=== PATIENT | female | born 1940 | race Caucasian/White ===

== ENCOUNTER 2016-09-01 00:38 | Observation (INO) | payer OTHER ==
[~2016-09-01] VITALS: Ht 152.4 cm; Wt 49.3 kg
[2016-09-01] VITALS (13 sets, daily range): BP systolic 129–187; BP diastolic 64–80
--- NOTE | ~2016-09-01 | EKG ---
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
--- NOTE | ~2016-09-01 | 2DMMODE ---
[facility] [place] [address] 2 D/M-MODE ECHOCARDIOGRAM Name: PAULO BURT Reanna Room #: 210-P [facility] IN [facility].#: [id number] Admission: 09/01/16 Attend Phys: Aremn Hill Discharge: Date of : 44 Date of Service: 09/01/16 1610 Report #: [id number] THIS REPORT FOR: //name// APPROVED REPORT EXAM: Comprehensive 2D, Doppler, and color-flow Echocardiogram Patient Location: Bedside Blood Pressure: 139/76 mmHg HR: 74 bpm Other Information Study Quality: Good Indications Hypertension/HDD Chest Pain HLP. 2D Dimensions RVDd: 33.13 mm LVEF(%): 50.81 (>50%) IVSd: 10.22 (7-11mm) LVOT Diam: 22.27 (18-24mm) LVDd: 41.15 mm PWd: 10.68 (7-11mm) Ascending Aorta: 26.65 mm LVDs: 30.63 (25-40mm) IVC: 18.00 mm Aortic Root: 28.00 mm Agarwal's LVEF: 50.81 % Volumes Left Atrial Volume (Systole) Single Plane 4CH: 25.07 mL Single Plane 2CH: 28.65 mL LA ESV Index: 23.00 mL/m2 Aortic Valve AoV Peak Ramon.: 1.73 m/s AO Peak Gr.: 11.99 mmHg LV Max P.20 mmHg LV Max: 1.24 m/s Mitral Valve MV PHT: 86.26 ms MV E Max Ramon.: 0.70 m/s E/A Ratio: 0.6 MV A Ramon.: 1.13 m/s MV Decel. Time: 297.46 ms [facility] [place] [address] 2 D/M-MODE ECHOCARDIOGRAM Name: PAULO BURT Reanna Room #: [address] [place] [address] [place] ..#: [id number] Admission: 09/01/16 Attend Phys: rAmen Hill Discharge: Date of : 44 Date of Service: 09/01/16 1610 Report #: [id number] Pulmonary Valve PV Peak Ramon.: 0.85 m/s PV Peak Gr.: 7.67 mmHg SC End Vmax: 0.85 m/s Tricuspid Valve TR Peak Ramon.: 3.13 m/s RAP Estimate: 5.00 mmHg TR Peak Gr.: 39.20 mmHg Left Ventricle The left ventricle is normal size. There is normal LV segmental wall motion. Mild concentric left ventricular hypertrophy. Left ventricular systolic function is normal. The left ventricular ejection fraction is within the normal range. LVEF is 50-55%. Grade I - abnormal relaxation pattern. Right Ventricle The right ventricle is normal size. The right ventricular systolic function is normal. Atria The left atrium size is normal. The right atrium size is normal. Aortic Valve The aortic valve is minimally sclerotic without stenosis or insufficiency No aortic regurgitation is present. There is no aortic valvular stenosis. Mitral Valve The mitral valve is normal in structure. Mild mitral regurgitation. Tricuspid Valve The tricuspid valve is normal in structure. There is mild tricuspid regurgitation. The right atrial pressure is estimated at 5 mmHg. There is mild-moderate pulmonary hypertension. The estimated PAP is 44 mmHg. Pulmonic Valve The pulmonary valve is normal in structure. Trace pulmonic regurgitation. Great Vessels The aortic root is normal in size. IVC is normal in size and collapses >50% with inspiration. [facility] [address] [place] [address] 2 D/M-MODE ECHOCARDIOGRAM Name: PAULO BURT Room #: 210-P [facility] IN .R.#: [id number] Admission: 09/01/16 Attend Phys: Armen Hill Discharge: Date of : 44 Date of Service: 09/01/16 1610 Report #: [id number] Pericardium There is no pericardial effusion. <Conclusion> Left ventricular systolic function is normal. Grade I diastolic dysfunction The left ventricular ejection fraction is within the normal range. There is normal LV segmental wall motion. LVEF 50-55%. The aortic valve is minimally sclerotic without stenosis or insufficiency The mitral valve is normal in structure. Mild mitral regurgitation. There is mild tricuspid regurgitation. The right atrial pressure is estimated at 5 mmHg. There is mild-moderate pulmonary hypertension. The estimated PAP is 45 mmHg. There is no pericardial effusion. <ELECTRONICALLY SIGNED> By: James Painter MD, FACC 09/01/161609 09 09 James Painter MD, FACC /INF
--- NOTE | ~2016-09-01 | EKG ---
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 : 1940 Requested By: Armen Hill Order Number: [id number] MD: James Painter Measurements Intervals [place] Rate: 72 P: 15 W[place]: 162 QRS: -23 QRSD: 134 T: 134 QT: 428 QTc: 469 Interpretive Statements Sinus rhythm Left bundle branch block Baseline wander in lead(s) V6 No previous ECG available for comparison Electronically Signed On 09-02-2016 7:39:34 CDT by James Painter [email or web address] <ELECTRONICALLY SIGNED> By: James Painter MD, [facility] 09/02/16 0739 0149 0149 James Painter MD, [facility] /EPI
--- NOTE | ~2016-09-01 | CATHLAB ---
[facility] [place] [address] INVASIVE PROCEDURE REPORT Name: PAULO BURT Reanna Room #: 210-P [facility]#: [id number] Admission: 09/01/16 Attend Phys: Armen Hill Discharge: 09/02/16 Date of : 44 Date of Service: 09/01/16 1027 Report #: [id number] THIS REPORT FOR: //name// CC: Armen CARDOZO DATE OF SERVICE: 09/01/2016 CARDIAC CATHETERIZATION REPORT INDICATIONS: Unstable angina. Full risks, benefits and alternatives of cardiac catheterization were explained to the patient. All questions were answered. Informed consent was obtained. The right groin area was prepped and draped in a sterile manner. Lidocaine was given subcutaneously. A 4-Bulgarian sheath was inserted into the right femoral artery via modified Seldinger technique. CORONARY ANATOMY: The left main artery is a large caliber vessel, with no flow-limiting lesions. The LAD is a moderate-sized caliber vessel, travelling down the anterior wall and terminating just before the apex. There is mild disease in the proximal segment of the LAD, 20%. There is one moderate-sized first diagonal artery, with a mild stenosis at the ostium, 20%. The left circumflex artery is a moderate-sized caliber vessel, supplying two obtuse marginal arteries. There is mild plaquing in the ostium of the left circumflex artery, 30%. The RCA is a dominant vessel, ectatic throughout its course. There is mild disease in the mid segment, 30%. The PDA is a moderate-sized caliber vessel, wrapping around the apex. There are no flow-limiting lesions in the PDA. There are several posterolateral branches, with no flow-limiting lesions. A left ventriculogram was performed, revealing LV systolic function at borderline low-normal, ejection fraction of 50%. The LVEDP is approximately 18 mmHg. There is no gradient degree across the outflow tract. IMPRESSION: 1. Mild nonobstructive coronary artery disease. 2. Right dominant system. [facility] [address] [place] [address] INVASIVE PROCEDURE REPORT Name: PAULO BURT Room #: 210-P [facility] IN [facility].#: [id number] Admission: 09/01/16 Attend Phys: Armen Hill Discharge: 09/02/16 Date of : 44 Date of Service: 09/01/16 1027 Report #: [id number] 3. Borderline low-normal left ventricular systolic function. 4. Recommend medical therapy. <ELECTRONICALLY SIGNED> By: Ayan Tolbert MD 09/03/16 0824 1027 1247 Ayan Tolbert MD /nt
[2016-09-01] MEDS ORDERED: LOVASTATIN 20 M20 MG PO (02:32)
[2016-09-01] MEDS ORDERED: LEVOTHYROXINE 0.1 MG PO (02:32)
[2016-09-01] MEDS ORDERED: ASPIR 8181 MG PO (02:33)
[2016-09-01 04:01] LABS: ALBUMIN 3.4 g/dL (3.4-5.0); CALCIUM 9.2 mg/dL (8.5-10.1); CREATININE 0.8 mg/dL (0.6-1.3); POTASSIUM 3.4 mmol/L (3.5-5.1); TOTAL BILIRUBIN 0.3 mg/dL (<0.1-1.0); TOTAL PROTEIN 7.5 g/dL (6.4-8.2); TROPONIN-I 0.11 ng/mL (<0.04-0.07)
[2016-09-01 04:28] LABS: CHOLESTEROL 167 mg/dL (<200); HDL CHOLESTEROL 47 mg/dL (>40); LDL CHOLESTEROL 104 mg/dL (<100); TC:HDL 3.6 Ratio (Not establshd); TRIGLYCERIDE 80 mg/dL (<150); TROPONIN-I 0.11 ng/mL (<0.04-0.07); VLDL 16 mg/dL (<40)
[2016-09-01 04:30] LABS: SERUM ASSESSMENT Clear
[2016-09-02 03:24] LABS: HEMATOCRIT 40.7 % (37.0-47.0); HEMOGLOBIN 13.6 gm/dL (12.0-15.0); MCHC 33.3 g/dL (28.0-37.0); MCV 86.9 fL (80.0-100.0); RBC 4.68 mil/uL (4.20-5.00); RDW 14.9 % (10.5-14.5); WBC 9.1 thou/uL (4.0-11.0)
[2016-09-02 03:34] VITALS: BP 130/67
[2016-09-02 03:34] LABS: CALCIUM 8.8 mg/dL (8.5-10.1); CREATININE 0.8 mg/dL (0.6-1.3)
[2016-09-02 03:41] LABS: POTASSIUM 4.4 mmol/L (3.5-5.1)
[2016-09-02 13:21] VITALS: BP 130/67
[2016-09-02 13:22] VITALS: BP 130/67
[2016-09-02] MEDS ORDERED: CARVEDILOL6.25 MG PO (13:23)
== END 2016-09-02 13:50 | disposition home or self-care (01) ==
LOC: 2N 00:38
PROVIDERS: Internal Medicine Endocrinology, Diabetes & Metabolism; Nurse Practitioner
DX: I25.110 Atherosclerotic heart disease of native coronary artery with unstable angina pectoris (principal); M25.512 Pain in left shoulder; E03.9 Hypothyroidism, unspecified; I10 Essential (primary) hypertension; E78.5 Hyperlipidemia, unspecified; E87.6 Hypokalemia

== ENCOUNTER 2017-03-10 13:23 | Inpatient (IN) | payer OTHER ==
[~2017-03-10] VITALS: Ht 149.9 cm; Wt 53.8 kg
--- NOTE | ~2017-03-10 | HC ---
[facility] [place] [address] CONSULTATION Name: PAULO BURT Room #: 406-P [facility] IN M.R.#: [id number] Admission: 03/10/17 Attend Phys: Armen Hill MD Discharge: 03/12/17 Date of : 44 Report #: [id number] THIS REPORT FOR: //name// CC: [facility] Ayan FRIED REASON FOR CONSULT: Mediastinal adenopathy seen on outside CAT scan. PET CT of the PE protocol from [place] described no pulmonary embolus; however, there was mediastinal subcarinal left hilar adenopathy. The largest mass of adenopathy is in the aortopulmonic window region measuring 4.5 cm x 6.8 cm. The left posterior hilar adenopathy measures 3 cm in greatest dimension, subcarinal adenopathy measures approximately 3.3 cm. So they described no evidence for pulmonary emboli, but did see mediastinal subcarinal left hilar adenopathy most suggestive of neoplastic process such as metastatic adenopathy perhaps lymphoma. Note the patient also had a CT abdomen and pelvis without specific findings. She also had an MRI of the head to evaluate the dizziness without specific findings. The patient had said that she had woken up on Wednesday, note that this is Wednesday, with some slight dizziness, she usually takes ____ slightly better; then it persisted on Wednesday and , it was present when she came here, that was why she got into the Emergency Room. Before that, she denied any headache, vision changes, mouth sores, thinking changes, speaking troubles, discoordination except for some mild disequilibrium from the wooziness. This is a little bit different. She has had vertigo before. This was not quite the same. This is more felt like she might pass out. No arm or leg swelling. No dysesthesias. She has not had any new breathing troubles. No new cough. She has a very mild smoker's cough, does not cough up any blood. No swallowing difficulties. Appetite has been good. No weight change, no diarrhea, no constipation, no blood in her urine or stool recently, no dysuria, no ankle swelling. PAST MEDICAL HISTORY: Notable for adult hypothyroidism, also note that recently she had had some chest discomfort, had an elevated troponin, but had no significant disease on cath, had a normal echo, 50-55%. It sounds like they thought it is secondary to hypertension. The patient seems to think she had a heart attack, but least the note from slat grader here seemed to not come to the same conclusion. FAMILY HISTORY: Mother had no specific illnesses other than old age. Father, sounds like she does not know much about him. Sounds like she had 3 siblings growing up, I think one of them may have had some blindness issues. She has 4 children, I think a daughter has some back issues. 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 Still smokes about a pack per day. She lives by herself except for her dachshund named Diann who has seizures and takes phenobarbital. She does not drink any alcohol. No street drugs. MEDICATIONS: At this time in the hospital include atorvastatin calcium 20 mg at dinner, aspirin 81 mg daily, pantoprazole 40 mg daily, levothyroxine 100 mcg daily, docusate 100 mg b.i.d., meclizine t.i.d. p.r.n., Tylenol p.r.n., MiraLax p.r.n., nitroglycerin tablets sublingual p.r.n., carvedilol 6.25 mg b.i.d., IV fluids, Zofran p.r.n. PHYSICAL EXAMINATION: GENERAL: The patient appears her stated age. VITAL SIGNS: Height is 4 feet 11 inches, 149.9 cm, weight is 118.7 pounds or 53.8 kilograms. Blood pressure is 156/92, O2 sat 91%, respirations 20, pulse 80, temperature 98.4. MOOD: The patient is alert, pleasant and appears to be a reliable historian. NEUROLOGIC: Face is symmetrical. She is moving all extremities. Speech pattern appears to be normal. No facial drooping. LUNGS: Have symmetric unlabored pulmonary expansion without rhonchi, rales or wheezes. LYMPHATICS: No enlarged lymph nodes in the supraclavicular, cervical, axillary, inguinal, or epitrochlear region. ABDOMEN: Soft without mass. EXTREMITIES: Without clubbing, cyanosis or edema. LABORATORY DATA: Here shows normal electrolytes, BUN of 7, creatinine 0.7. Liver functions normal, ALT slightly low at 14, albumin slightly low at 3. INR was normal on admit. Hemoglobin 12.4, white count 8.2, MCV 86.7, platelets 301. UA unremarkable. Radiologic studies mentioned and done here include the MRI of the head, which did not reveal any specific changes, other than moderate chronic small vessel ischemic type change without evidence of acute or recent infarct. The CAT scan of the abdomen and pelvis as mentioned done here showed small infrarenal abdominal aortic aneurysm with moderate amount of intraluminal thrombus. No evidence of dissection. IVC was normal. No evidence of intraabdominal adenopathy or hepatic enlargement or splenic enlargement. DISCUSSION: Discussed with the patient that she knows that there were some enlarged lymph nodes, that she underwent a bronchoscopy yesterday with Dr. Dean Hong, there is not a full report on the scan or in the chart, but his note from yesterday mentions that there was paratracheal adenopathy which has been extensive and he was sampled with a 22-gauge FNA. He said the preliminary [facility] [address] [place] [address] CONSULTATION Name: PAULO BURT Room #: 406-P [facility] IN ..#: [id number] Admission: 03/10/17 Attend Phys: Armen Hill MD Discharge: 03/12/17 Date of : 44 Report #: [id number] path appears malignant and await final path. The patient is aware of these potential changes. She has discussed that our office ____. I also told her that I believe there is an oncologist who comes down to [place] if she would wish to see them down there. ASSESSMENT AND PLAN: 1. CAT scan of the chest findings for mediastinal and left hilar adenopathy, underwent bronchoscopy yesterday, final path pending. The patient has my card, I have asked her to call us or Dr. Hong next week. We will be happy to see her in followup if needed. The patient is aware that additional testing such as a PET scan or re-biopsy may be needed if lesional tissue is not diagnostic 2. Tobacco. Encourage cessation. 3. History of hypertension, but no definite heart attack from recent event. Continues meds per others, which may include Coreg, etc. 4. Hypothyroid. Continues replacement. 5. Will be available as an outpatient. <ELECTRONICALLY SIGNED> By: Chito Quinones MD 03/15/17 0710 0737 0053 Chito Quinones MD /nt
--- NOTE | ~2017-03-10 | S ---
[facility] [place] [address] SURGICAL PATH RPT PROCEDURE Name: RUBI BURT Room #: 406-P [facility] IN M.R.#: [id number] Admission: 03/10/17 Date of : 44 Discharge: 03/12/17 Report #: [id number] Path Case #: [id number] PATHOLOGY REPORT COLLECTION DATE: 03/11/2017 RECEIVED DATE: 03/12/2017 SUBMITTING PHYS: Dr. Dean Hong OTHER PHYS: Dr. Armen Bach SPECIMEN(S) RECEIVED: A.LLL LB6 biopsy forceps * * * * * * * * * * * * FINAL DIAGNOSIS: Lung, left lower lobe, biopsy: - Small cell carcinoma. - See comment. COMMENT: Immunohistochemical staining performed on block A1 with appropriately reactive controls shows the tumor cells to be positive for AE1-AE3, CD56, TTF-1, and Synaptophysin. The tumor cells are negative for p63. This immunoprofile supports the above diagnosis of small cell carcinoma. This case is co-reviewed by Dr. Matilde Mccall. These findings are discussed with Dr. Dean Hong on 03/16/2017 at 9:34 AM. PATHOLOGIST: Vince Hammond M.D. REPORT ELECTRONICALLY SIGNED BY: Vince Hammond M.D. DATE/TIME: 03/16/2017 09:35 * * * * * * * * * * * * GROSS PATHOLOGY: The specimen is received in formalin, labeled "Rubi Burt and left lower lobe L B6 biopsy", are multiple johnson-white to hemorrhagic soft tissue aggregate measures 0.4 x 0.3 x 0.2 cm, entirely submitted in A1. (SWS; 03/12/2017) CLINICAL HISTORY: None provided [facility] [place] [address] SURGICAL PATH RPT PROCEDURE Name: RUBI BURT Room #: 406-P [facility] IN M.R.#: [id number] Admission: 03/10/17 Date of : 44 Discharge: 03/12/17 Report #: [id number] Path Case #: [id number] INITIAL CPT CODE(S): A; 85636, 05380, 51705, 49061, 65758, 58560 Professional services performed by [facility] at [address] , [place] [address] Technical services performed by [facility] at [address] [place] [address], [address] [address]. [facility] [address] [address] PHONE: [phone] DIRECTOR: Ray Sarmiento M.D. * * * END OF REPORT * * *
--- NOTE | ~2017-03-10 | P ---
[facility] [place] [address] PROCEDURE REPORT Name: PAULO BURT Room #: 406-P [facility] IN M.R.#: [id number] Admission: 03/10/17 Attend Phys: Armen Hill MD Discharge: 03/12/17 Date of : 44 Report #: [id number] THIS REPORT FOR: //name// CC: Armen FRIED DATE OF SERVICE: 03/11/2017 PROCEDURE: Bronchoscopy. REASON FOR PROCEDURE: Lung mass, ASA classification class II. PROCEDURE NOTATION: After discussing risks, benefits of planned procedure with the patient and family, they desired to proceed. After obtaining informed consent, she was brought to OR room 6 where she was placed under general endotracheal anesthesia by the anesthesia service. Once accomplished, the white light bronchoscope was advanced through the 8.5 endotracheal tube until the distal trachea was seen. Airways were surveyed. Mainstem, lobar, segmental and subsegmental bronchi were explored with no significant anatomic variation. The left superior segmental bronchus (LB-6) showed an endobronchial mass lesion not completely occluding the airway. This was sampled with four 19-gauge needles and sent for pathology, cytology. Rapid onsite pathology confirmed lesional material. Several forceps biopsies were then obtained in this area and sent in formalin for tissue histopathology. White light bronchoscope was then removed and endobronchial ultrasound device was then inserted. Findings included lymph nodes as follows, 11R 3.5 mm, 10R 3.5 mm, level-7 13 mm, 4L 20 mm, 4R 18 mm and 11L 3.5 mm. No 10L appreciated; however, 10L and 4L appeared to be in similar structures. Once accomplished, a 22-gauge Core needle was passed times 4 into the 4R lymph node. Rapid onsite pathology suggested bloody material; however, good tissue was obtained from this area. Two additional passes using a 25-gauge core needle were sent. Rapid onsite pathology did confirm lesional material. Rest were sent in formalin for histopathology. The patient tolerated well. No noted complications. Bronchial washings were also sent for cytopathology. IMPRESSION: Left lower lobe, particularly superior segment endobronchial mass with large bulky mediastinal adenopathy/mass status post above procedure. PLAN: Await pathology. Discussed with family at the end of procedure. <ELECTRONICALLY SIGNED> By: Dean Hong MD 03/15/17 0916 1522 1200 Dean Hong MD /nt
--- NOTE | ~2017-03-10 | HC ---
[facility] [place] [address] CONSULTATION Name: PAULO BURT Room #: 406-P [facility] IN .R.#: [id number] Admission: 03/10/17 Attend Phys: Armen Hill MD Discharge: 03/12/17 Date of : 44 Report #: [id number] THIS REPORT FOR: //name// CC: Armen FRIED ____ ___ DATE OF SERVICE: 03/10/2017 REFERRING PROVIDER: . REASON FOR CONSULTATION: Lung mass. CHIEF COMPLAINT: Vertigo. HISTORY OF PRESENT ILLNESS: Our group was asked to see the patient in consultation while hospitalized at [facility], a pleasant 77-year-old woman with a past pulmonary history significant for tobacco abuse, smoking about a pack per day for several years. Over the last 24 hours, she has had some symptoms of dizziness, she described thing is not spinning, but more of a disequilibrium. Denies any other respiratory complaints or chest complaints. No chest pain, cough, sputum production, fevers, or chills. No recent travel. She went to [facility] for further evaluation, D-dimer was abnormal, underwent CT scan of the chest, which revealed a mediastinal mass and some interstitial changes to the lung, this prompted transferred here for further evaluation and subsequent consultation. Further imaging of the brain is pending at this time. The patient has a known history of coronary artery disease by elevated troponin, but had a normal cardiac cath several months ago. No prior pulmonary workup or known abnormalities. ALLERGIES: SULFA. PAST MEDICAL HISTORY: 1. Hypertension. 2. Hypothyroidism. 3. History of goiter. OUTPATIENT MEDICATIONS: Include carvedilol, Synthroid, aspirin, and lovastatin. SOCIAL HISTORY: Active smoker. No significant alcohol consumption. Lives with one of her dependent disabled sons and a dog, . FAMILY HISTORY: Negative for any significant pulmonary disease. REVIEW OF SYSTEMS: [facility] [address] [place] [address] CONSULTATION Name: PAULO BURT Room #: 406-P [facility].#: [id number] Admission: 03/10/17 Attend Phys: Armen Hill MD Discharge: 03/12/17 Date of : 44 Report #: [id number] CONSTITUTIONAL: No fever, chills, sweats, change in weight or appetite. ENT: No upper respiratory congestion, rhinorrhea, or dysphagia. CARDIOVASCULAR: No chest pains or palpitations. NEUROLOGIC: Some dizziness and unsteady gait. GASTROINTESTINAL: No nausea, vomiting, diarrhea, constipation, or abdominal pain. GENITOURINARY: No dysuria, no frequency. INTEGUMENT: Denies any rash. MUSCULOSKELETAL: No joint pains or swelling. PHYSICAL EXAMINATION: VITAL SIGNS: Afebrile, pulse 70s, respiratory rate 18, blood pressure 143/74, and oxygen saturation 95% on room air. GENERAL: This is a pleasant elderly woman, in no distress. ENT: Clear oropharynx. Mallampati 1 airway. No thrush. No erythema. NECK: Supple, no lymphadenopathy. LUNGS: Diminished, but clear. No wheezes or crackles. CARDIOVASCULAR: Heart regular. No murmurs appreciated. ABDOMEN: Soft, nontender, no masses. EXTREMITIES: Without edema, they are warm with 2+ pulses. INTEGUMENT: Without rash. LABORATORY DATA: CT scan as described in HPI. Urine is clear. IMPRESSION: 1. Mediastinal mass, worrisome for malignancy, lymphoma versus bronchogenic carcinoma particularly small cell and high in the differential diagnosis, other malignancy is less likely. 2. Dizziness/vertigo/disequilibrium, worrisome for brain metastasis or other intracranial process. 3. Hypertension. 4. Tobacco abuse. 5. History of thyroid goiter with thyroid suppression. SUGGEST: 1. We will arrange for bronchoscopy with endobronchial ultrasound under general endotracheal anesthesia, sampling of the mass with fine needle aspirates under ultrasound guidance. 2. MRI of the brain. 3. Further recommendations pending results of above. Plan is for oncology consultation noted. We will discuss further with them after their initial evaluation and results of the above tests. <ELECTRONICALLY SIGNED> By: Dean Hong MD 03/15/17 [id number] Dean Hong MD /nt
--- NOTE | ~2017-03-10 | CNG ---
[facility] [place] [address] CYTO-NONGYN REPORT PROCEDURE Name: RUBI BURT Room #: 406-P [facility] IN M.R.#: [id number] Admission: 03/10/17 Date of : 44 Discharge: 03/12/17 Report #: [id number] Path Case #: [id number] CYTOPATHOLOGY REPORT COLLECTION DATE: 03/11/2017 RECEIVED DATE: 03/12/2017 SUBMITTING PHYS: Dr. Dean Hong OTHER PHYS: Dr. Armen Bach CLINICAL HISTORY: Dizzy, nodules on lung, J98.5 PROCEDURE: B. Pass performed by Dr. Hong yielding fluid. Two H and E slides, and 45 mL from needle rinsed in formalin were submitted to the lab. C. Passes performed by Dr. Hong yielding fluid. Four H and E slides, and 45 mL from needle rinsed in formalin were submitted to the lab. SPECIMEN(S) RECEIVED: A.EBUS guided Bronchoalveolar lavage, NOS B.EBUS guided LLL LB6 needle aspiration C.EBUS guided Fine needle aspiration, lymph node 4R Pass 1-6 * * * * * * * * * * * * FINAL DIAGNOSIS: A. EBUS guided Bronchoalveolar lavage, NOS: Atypical cells identified. Few atypical cells with coarse chromatin in small crowded clusters. Normal bronchial cells and macrophages are present. B. EBUS guided LLL LB6 needle aspiration: MALIGNANT CELLS IDENTIFIED. Malignant cells with prominent nucleoli and irregular nuclear contours scattered and in loose groups, some crush artifact noted. Malignant cells are highlighted by an AE1/AE3 immunostain (Block B1; appropriately reactive control). Normal bronchial cells and macrophages are present. See comment. C. EBUS guided Fine needle aspiration, lymph node 4R Pass 1-6: MALIGNANT CELLS IDENTIFIED. Abundant malignant appearing cells scattered and in loose groups. Malignant cells are highlighted by an AE1/AE3 immunostain (Block C1; appropriately reactive control). Normal bronchial cells and macrophages are present. Red blood cells present. See comment. [address] [address] CYTO-NONGYN REPORT PROCEDURE Name: RUBI BURT Room #: 406-P [facility] IN ..#: [id number] Admission: 03/10/17 Date of : 44 Discharge: 03/12/17 Report #: [id number] Path Case #: [id number] COMMENT: The malignant cells present in Parts B and C, are morphologically similar to the malignant cells present in the biopsy specimen [id number]. This case is co-reviewed by Dr. Matilde Mccall. PATHOLOGIST: Vince Hammond M.D. REPORT ELECTRONICALLY SIGNED BY: Vince Hammond M.D. DATE/TIME: 03/16/2017 09:41 * * * * * * * * * * * * GROSS PATHOLOGY: A. EBUS guided Bronchoalveolar lavage, NOS: The specimen is submitted unfixed, labeled "Rubi Burt". Received by the Cytology Department is 10 mL of cloudy red fluid. One ThinPrep slide was prepared. B. EBUS guided LLL LB6 needle aspiration: The specimen is labeled "Rubi Burt" and consists of two H and E slides. Forty-five mL of cloudy fluid in formalin from the needle rinse is also submitted and a formalin fixed cell block was prepared from this material. C. EBUS guided Fine needle aspiration, lymph node 4R Pass 1-6: The specimen is labeled "Rubi Burt" and consists of four H and E slides. Forty-five mL of dark brown fluid in formalin from the needle rinse is also submitted and a formalin fixed cell block was prepared from this material. (clt 03.12.2017) IMMEDIATE EVALUATION: B. EBUS guided LLL LB6 needle aspiration: Per Dr. Hammond: Atypical cells/ Lesional present. C. EBUS guided FNA LN 4R: Per Dr. Hammond: Pass 1 Blood only, Pass 5 Adequate lymphoid/Lesional. Professional testing performed by [facility] at [address] , [place] [address] SOURCE WATER PROTECTION SPECIALIST(S): DELVIN Saldaña(ASCP) INITIAL CPT CODE(S): A; 92441 B; 83009, 22322, 92435, 96648 C; 23223, 84557, 16641, 08046 Professional services performed by [facility] at [address] [place], [place] [id number] [place] [address] CYTO-NONGYN REPORT PROCEDURE Name: RUBI BURT Room #: 406-P [facility] IN M.R.#: [id number] Admission: 03/10/17 Date of : 44 Discharge: 03/12/17 Report #: [id number] Path Case #: [id number] [facility] at [address] [place] [address]., [address], [place] [address]. [address], [address] [place] [address] PHONE: [phone] DIRECTOR: Ray Sarmiento M.D. * * * END OF REPORT * * *
--- NOTE | ~2017-03-10 | D ---
[facility] [place] [address] DISCHARGE SUMMARY Name: PAULO BURT Room #: 406-P [facility] IN .R.#: [id number] Admission: 03/10/17 Attend Phys: Armen Hill MD Discharge: 03/12/17 Date of : 44 Report #: [id number] THIS REPORT FOR: //name// CC: Armen FRIED DATE OF SERVICE: 03/12/2017 HISTORY OF PRESENT ILLNESS: The patient is a 77-year-old female who went to the outside hospital for dizziness. She had D-dimer checked there, which was elevated. The patient had CT angiography of the chest that showed no pulmonary embolism, but revealed mediastinal lymphadenopathy. She was transferred here. Please refer to the admission H and P for details. HOSPITALIZATION COURSE: The patient was hospitalized. Oncologist and master fire control technician were consulted. The patient had bronchoscopy and transbronchial biopsy. The patient did well, and had no complications. Abdominal CT was negative for lymphadenopathy. MRI of the brain was taken. It was negative for acute findings. The patient is not orthostatic. Dizziness has resolved. Currently, the patient feels well, and she has no complaints. She will be discharged home with close outpatient followup, to get the biopsy results and decide treatment plan. DISCHARGE DIAGNOSES: 1. Mediastinal lymphadenopathy as detailed above. Status post bronchoscopy with biopsy on 03/11/2017. 2. Dizziness, resolved. Likely cause dehydration, but the exact etiology is not clear. Negative MRI of the brain. SECONDARY DIAGNOSIS: Hypothyroidism. DISPOSITION: The patient is discharged home. FOLLOWUP PLAN: Follow up in the Oncology Clinic in 1-2 weeks. DISCHARGE MEDICATIONS: Please refer to the medication reconciliation list. By: 1134 2039 Armen Hill MD /nt
[~2017-03-10 13:23] MED LIST: ASPIR 8181 MG PO; CARVEDILOL6.25 MG PO; LEVOTHYROXINE 0.1 MG PO; LOVASTATIN 20 M20 MG PO
[2017-03-10 15:45] VITALS: BP 143/74
[2017-03-10 20:00] VITALS: BP 164/90
[2017-03-10 20:18] LABS: URINE BILIRUBIN NEGATIVE (Negative); URINE BLOOD NEGATIVE (Negative); URINE COLOR YELLOW; URINE GLUCOSE-RANDOM* NEGATIVE (Negative); URINE KETONES NEGATIVE (Negative); URINE NITRITE NEGATIVE (Negative); URINE PROTEIN (DIPSTICK) NEGATIVE (Negative); URINE UROBILINOGEN 0.2 E.U./dl (0.2-1.0)
[2017-03-11] VITALS: BP 148/86
[2017-03-11 04:00] VITALS: BP 156/65
[2017-03-11 05:18] LABS: HEMATOCRIT 37.8 % (37.0-47.0); HEMOGLOBIN 12.4 gm/dL (12.0-15.0); MCH 28.5 pg (26.0-34.0); MCHC 32.8 g/dL (28.0-37.0); MCV 86.7 fL (80.0-100.0); RBC 4.36 mil/uL (4.20-5.00); RDW 15.6 % (10.5-14.5); WBC 8.2 thou/uL (4.0-11.0)
[2017-03-11 05:29] LABS: INR 1.1
[2017-03-11 05:30] LABS: CREATININE 0.7 mg/dL (0.6-1.0); POTASSIUM 3.8 mmol/L (3.5-5.1); TOTAL BILIRUBIN 0.5 mg/dL (<0.1-1.0); TOTAL PROTEIN 6.7 g/dL (6.4-8.2)
[2017-03-11 08:30] VITALS: BP 158/72
[2017-03-11 13:58] VITALS: BP 170/93
[2017-03-11 20:12] VITALS: BP 151/89
[2017-03-12 04:36] VITALS: BP 156/92
[2017-03-12 07:45] VITALS: BP 142/76
[2017-03-12 12:39] VITALS: BP 142/76
== END 2017-03-12 13:03 | disposition home or self-care (01) | DRG 607 ==
LOC: 4N 13:23 → ENTRNSPT 03-12 12:55 → EDTRNSPTSTS 03-12 13:00 → 4N 03-12 13:03
PROVIDERS: Internal Medicine Pulmonary Disease; Nurse Practitioner
PROC: 0BBJ3ZX Excision of Left Lower Lung Lobe, Percutaneous Approach, Diagnostic (ICD-10-PCS; principal; 2017-03-11)
DX: R22.2 Localized swelling, mass and lump, trunk (principal); R42 Dizziness and giddiness; I10 Essential (primary) hypertension; E03.9 Hypothyroidism, unspecified; F17.210 Nicotine dependence, cigarettes, uncomplicated; E78.5 Hyperlipidemia, unspecified; E87.8 Other disorders of electrolyte and fluid balance, not elsewhere classified; Z90.49 Acquired absence of other specified parts of digestive tract; Z80.9 Family history of malignant neoplasm, unspecified; Z88.2 Allergy status to sulfonamides
CPT/HCPCS: 10790; 62110; 62900; 70005

== ENCOUNTER → 2020-03-05 | Outpatient (CLI) | payer OTHER | LOC: SJCVCIMAG 07:10 | PROVIDERS: ATTEND Nuclear Medicine Nuclear Cardiology | DX: R94.31 Abnormal electrocardiogram [ECG] [EKG] (principal); I71.4 Abdominal aortic aneurysm, without rupture; I25.10 Atherosclerotic heart disease of native coronary artery without angina pectoris; I73.9 Peripheral vascular disease, unspecified; E78.00 Pure hypercholesterolemia, unspecified; I10 Essential (primary) hypertension; I44.7 Left bundle-branch block, unspecified; C34.92 Malignant neoplasm of unspecified part of left bronchus or lung; Z79.899 Other long term (current) drug therapy; Z87.891 Personal history of nicotine dependence ==

== ENCOUNTER → 2020-03-22 | Outpatient (CLI) | payer OTHER ==
[2020-03-22 10:31] LABS: CREATININE 0.8 mg/dL (0.6-1.0)
== END ==
LOC: CAT 09:40
PROVIDERS: ATTEND Nuclear Medicine Nuclear Cardiology
DX: I71.4 Abdominal aortic aneurysm, without rupture (principal); I71.2 Thoracic aortic aneurysm, without rupture; K55.069 Acute infarction of intestine, part and extent unspecified

== ENCOUNTER → 2021-03-04 | Outpatient (CLI) | payer OTHER | LOC: SJCVCIMAG 07:54 | PROVIDERS: ATTEND Internal Medicine Cardiovascular Disease | DX: I49.1 Atrial premature depolarization (principal); R00.0 Tachycardia, unspecified; I25.10 Atherosclerotic heart disease of native coronary artery without angina pectoris; I10 Essential (primary) hypertension; E78.00 Pure hypercholesterolemia, unspecified; R60.9 Edema, unspecified; I71.4 Abdominal aortic aneurysm, without rupture; I77.9 Disorder of arteries and arterioles, unspecified; K21.9 Gastro-esophageal reflux disease without esophagitis; I44.7 Left bundle-branch block, unspecified; Z87.891 Personal history of nicotine dependence; Z79.82 Long term (current) use of aspirin; Z79.899 Other long term (current) drug therapy; Z88.2 Allergy status to sulfonamides ==

== ENCOUNTER → 2021-03-20 | Outpatient (CLI) | payer OTHER | LOC: SJCVCIMAG 03-11 11:15 | PROVIDERS: ATTEND Nuclear Medicine Nuclear Cardiology | DX: I65.23 Occlusion and stenosis of bilateral carotid arteries (principal); I71.4 Abdominal aortic aneurysm, without rupture; I77.9 Disorder of arteries and arterioles, unspecified; I25.10 Atherosclerotic heart disease of native coronary artery without angina pectoris; I10 Essential (primary) hypertension; I44.7 Left bundle-branch block, unspecified; E78.00 Pure hypercholesterolemia, unspecified; Z79.82 Long term (current) use of aspirin; Z79.899 Other long term (current) drug therapy; Z87.891 Personal history of nicotine dependence; Z88.2 Allergy status to sulfonamides ==